=== PATIENT | female | born 1970 | race Caucasian/White ===

== ENCOUNTER → 2024-02-19 | Outpatient (CLI) | payer BC, SELFPAY ==
--- NOTE | 2024-02-19 10:30 | XR_ITS ---
MRI shoulder, left, without contrast. Date and time: February 19, 2024 1110 hours INDICATIONS: Injured the shoulder August 28, 2023 shoulder pain joint locking Technique: Multiple axial, sagittal and coronal sections of the shoulder have been obtained. Siemens high-resolution 1.5 Nieves MRI scanner is utilized. Axial fat-suppressed sections, TR 2350, TE 18 T2-weighted coronal fat-saturated images, TR 3500, TE 7100 T1-weighted coronal images, TR 500, TE 15 T2-weighted sagittal fat-saturated images, TR 3500, TE 57 T1-weighted sagittal sections, TR 504, TE 13. Findings: Supraspinatus tendon insertion is abnormal, 20 mm full-thickness tear. Infraspinatus tendon insertion is suspicious for full-thickness tear. Subscapularis insertion is intact. Subscapularis bursa is evident. Long head of the biceps is in the bicipital groove. No definite tear of the biceps superior labral anchor is seen. Retraction of the musculotendinous junction of the rotator cuff is evident. Tendinosis pattern is moderate. Distance between the acromium and humeral head is 2.5 mm Atrophy of the supraspinatus muscle is moderate. Atrophy of the infraspinatus muscle is moderate. Sagittal sections demonstrate a horizontal acromion. Acromioclavicular joint demonstrates moderate osteoarthritis. Osacromiale is not identified. Fraying and irregularity anterior superior labral margins. Bony glenoid fossa on the sagittal sections does not demonstrate osseous defect. Occult fracture or area of avascular necrosis is not seen. Acromioclavicular joint separation is not visible. Defect in the posterolateral margin of the humeral head is not seen Impression: Full-thickness rotator cuff tears as above Fraying and irregularity anterosuperior labral margins
== END | disposition home or self-care (01) ==
PROVIDERS: Referring Provider Orthopaedic Surgery Orthopaedic Trauma; Visit Provider Orthopaedic Surgery Orthopaedic Trauma
DX: S46.012A Strain of muscle(s) and tendon(s) of the rotator cuff of left shoulder, initial encounter (principal); X58.XXXA Exposure to other specified factors, initial encounter; M25.812 Other specified joint disorders, left shoulder
CPT/HCPCS: 73221

== ENCOUNTER → 2024-06-19 | Outpatient (CLI) | payer BC, SELFPAY ==
[2024-06-19 09:32] LABS: Collection Type, Urine Clean Catch
[2024-06-19 10:21] LABS: Basophils % (Auto) 0 % (0-2.5); Eosinophils # (Auto) 0.3 Thou/mm3 (0.0-0.5); Eosinophils % (Auto) 5 % (0-10); Hematocrit 41.2 % (36.0-46.0); Hemoglobin 13.9 g/dL (12.0-16.0); Immature Granulocytes % (Auto) 0 % (0-0); Immature Granulocytes Auto 0.01 Thou/mm3 (0.00-0.00); Lymphocytes % (Auto) 40 % (10-50); Mean Corpuscular HGB Conc 33.7 g/dl (31.0-37.0); Mean Corpuscular Hemoglobin 30.3 pg (25.0-35.0); Mean Corpuscular Volume 90 fL (80-100); Monocytes # (Auto) 0.3 Thou/mm3 (0.0-0.8); Monocytes % (Auto) 7 % (0-12); Neutrophils # (Auto) 2.4 Thou/mm3 (1.8-7.7); Neutrophils % (Auto) 48 % (37-80); Nucleated Red Blood Cell % 0 /100 WBC (0); Platelet Count 197 Thou/mm3 (140-440); RDW Standard Deviation 39.7 fL (36.4-46.3); Red Blood Count 4.58 Miln/mm3 (4.00-5.20)
[2024-06-19 10:24] LABS: Bilirubin,Urine Negative (Negative); Blood,Urine Negative (Negative); Clarity,Urine Clear (Clear/Hazy); Color,Urine Lt-Yellow (Lt Yel-Yel); Glucose, Urine Negative (Negative); Ketones,Urine Negative (Negative); Leukocyte Esterase,Urine Negative (Negative); Nitrite,Urine Negative (Negative); PH,Urine 6.5 (5.0-7.0); Protein,Urine Negative (Neg - Trace); RBC,Urine 2 /hpf (0-3); Specific Gravity,Urine 1.016 (1.001-1.035); Squamous Epithelial Cell,Urine 8 /hpf (0-5); Urobilinogen,Urine Negative mg/dL (0.0-1.0); WBC,Urine 1 /hpf (0-5)
[2024-06-19 11:42] LABS: Alanine Aminotransferase 21 U/L (10-49); Albumin, Serum 4.1 gm/dL (3.5-5.0); Albumin/Globulin Ratio 1.7 (1.2-2.2); Alkaline Phosphatase 61 U/L (46-116); Anion Gap 5 (7-16); Aspartate Amino Transferase 30 U/L (0-34); BUN/Creatinine Ratio 23 Ratio (12-20); Bilirubin,Total 0.5 mg/dL (0.3-1.2); Blood Urea Nitrogen 16 mg/dL (9-23); Calcium 10.2 mg/dL (8.3-10.6); Calcium (Corrected) 10.2 mg/dL (8.5-10.1); Carbon Dioxide 31.1 mMol/L (20.0-31.0); Cardiac Risk Estimate 2.5 RATIO (3.7-5.6); Chloride 104 mMol/L (98-107); Cholesterol 181 mg/dL (132-200); Creatinine (Component) 0.7 mg/dL (0.6-1.3); Globulin 2.4 gm/dL (2.3-3.5); Glucose 91 mg/dL (74-106); HDL Cholesterol 73 mg/dL (40-60); LDL Cholesterol,Calculated 90 mg/dL (0-130); Osmolality,Calculated 280 (275-295); Potassium 4.9 mMol/L (3.4-5.1); Sodium 140 mMol/L (136-145); Thyroid Stimulating Hormone 1.29 uIU/mL (0.55-4.78); Total Protein 6.5 gm/dL (5.7-8.2); Triglycerides 91 mg/dL (30-150); eGFR > 60 See Note
== END | disposition home or self-care (01) ==
LOC: COPL 08:56
PROVIDERS: PCP Family Medicine; Referring Provider Family Medicine; Visit Provider Family Medicine
DX: Z00.00 Encounter for general adult medical examination without abnormal findings (principal)
CPT/HCPCS: 36415; 80053; 80061; 81001; 84443; 85025

== ENCOUNTER → 2024-08-14 | Outpatient (CLI) | payer BC, SELFPAY ==
--- NOTE | 2024-08-14 08:45 | XR_ITS ---
Examination: Screening digital mammography, bilateral Computer aided detection 3-D breast Tomosynthesis, bilateral Date and time of exam: August 14, 2024 0837 hours Compared to mammograms dating to February 22, 2000 and Indication: Screening Technique: Nonmagnified MLO, CC views of the breasts to been obtained, reconstructed from 3-D Tomosynthesis images. R2 computer aided detection program utilized for evaluation of suspicious masses and/or abnormal calcifications. 3-D Tomosynthesis images obtained. Findings: Scattered areas of fibroglandular density. Benign calcifications. No interval suspicious masses Impression: BI-RADS category II: Benign Findings. Recommend 1 year follow-up mammogram.
== END | disposition home or self-care (01) ==
LOC: CDIM 08:28
PROVIDERS: Referring Provider Family Medicine; Visit Provider Family Medicine
DX: Z12.31 Encounter for screening mammogram for malignant neoplasm of breast (principal); R92.323 Mammographic fibroglandular density, bilateral breasts; R92.1 Mammographic calcification found on diagnostic imaging of breast
CPT/HCPCS: 77063; 77067